=== PATIENT | female | born 1970 | race Caucasian/White ===

== ENCOUNTER 2017-02-06 08:50 | Inpatient (IN) | payer BC, OTHER ==
[~2017-02-06] VITALS: Ht 175.3 cm; Wt 55.3 kg
[2017-02-06] MEDS ORDERED: diphenhydrAMINE 50 MG CAPSULE PO PRN (13:45)
[2017-02-06] MEDS ORDERED: ONDANSETRON 4 MG/2 ML VIAL IM PRN (13:45)
[2017-02-06] MEDS ORDERED: LORAZEPAM 1 MG TABLET PO PRN ×2 (13:45)
[2017-02-06] MEDS ORDERED: MIRALAX 17 GM POWD.PACK PO PRN (13:45)
[2017-02-06] MEDS ORDERED: LACTULOSE 20 G/30 ML LIQUID UDC PO PRN (13:45)
[2017-02-06] MEDS ORDERED: LORAZEPAM 2 MG/1 ML VIAL IM PRN (13:45)
[2017-02-06] MEDS ORDERED: PROPRANOLOL HCL 10 MG TABLET PO PRN (13:45)
[2017-02-06] MEDS ORDERED: LOPERAMIDE HCL 2 MG CAPSULE PO PRN ×2 (13:45)
[2017-02-06] MEDS ORDERED: MAG HYDROX/AL HYDROX/SIMETH 30 ML LIQUID UDC PO PRN (13:45)
[2017-02-06] MEDS ORDERED: ONDANSETRON ODT 4 MG TAB.RAPDIS SL PRN (13:45)
[2017-02-06] MEDS ORDERED: DICYCLOMINE HCL 20 MG TABLET PO PRN (13:45)
[2017-02-06] MEDS ORDERED: ACETAMINOPHEN 325 MG TABLET PO PRN (13:45)
[2017-02-06] MEDS ORDERED: THIAMINE HCL 200 MG/2 ML VIAL IM ONE (13:45)
[2017-02-06 14:00] VITALS: BP 130/89
[2017-02-06 14:45] LABS: BASOPHILS % (AUTO) 0.4 % (0.0-2.0); EOSINOPHILS # (AUTO) 0.1 K/uL (0.0-0.7); EOSINOPHILS % (AUTO) 1.2 % (0.0-7.0); HEMATOCRIT 33.7 % (37-47); HEMOGLOBIN 11.2 G/DL (12.0-16.0); LYMPHOCYTES # (AUTO) 0.6 K/UL (0.8-4.8); MEAN CORPUSCULAR HGB CONC 33 g/dL (32.0-37.0); MEAN CORPUSCULAR VOLUME 81.3 FL (81.0-99.0); MONOCYTES # (AUTO) 0.1 K/UL (0.1-1.30); MONOCYTES % (AUTO) 3.3 % (0.0-11.0); NEUTROPHILS # (AUTO) 3.5 K/UL (1.8-8.9); NEUTROPHILS % (AUTO) 80.1 % (38.5-71.5); RED BLOOD CELL COUNT(AUTO) 4.15 MIL/UL (4.2-5.4); WHITE BLOOD COUNT (AUTO) 4.3 K/UL (4.0-11.2)
[2017-02-06] MEDS ORDERED: PREG150C PO (14:50)
[2017-02-06] MEDS ORDERED: LEVE500T20 PO (14:50)
[2017-02-06] MEDS ORDERED: ONDA8TAB6 PO (14:52)
[2017-02-06 14:55] LABS: ALANINE AMINOTRANSFERASE 94 U/L (14-59); ALKALINE PHOSPHATASE 153 U/L (50-136); AMYLASE 38 U/L (25-115); ASPARTATE AMINOTRANSFERASE 265 U/L (15-37); BILIRUBIN,TOTAL 5.2 mg/dL (0.2-1.0); CARBON DIOXIDE 28 mmol/L (21-32); CHLORIDE 101 mmol/L (98-107); CREATININE 0.8 mg/dL (0.6-1.3); GLUCOSE 179 mg/dL (74-106); MAGNESIUM 1.8 mg/dL (1.8-2.4); POTASSIUM 3.2 mmol/L (3.5-5.1); TOTAL PROTEIN, SERUM 8.2 g/dL (6.4-8.2); UREA NITROGEN, BLOOD 7 mg/dL (7-18)
[2017-02-06 14:59] LABS: ETHANOL 163 MG/DL (0-0)
[2017-02-06 15:12] LABS: PLATELET COUNT (AUTO) 27 K/UL (150-450)
[2017-02-06] MEDS ORDERED: POTASSIUM CHLORIDE 20 MEQ TAB.PRT.SR PO ONE (15:15)
[2017-02-06 15:17] LABS: BAND % (MANUAL) 5 % (0-10); LYMPHOCYTES % (MANUAL) 12 % (20-40); MONOCYTES % (MANUAL) 7 % (2-10); NEUTROPHILS % (MANUAL) 76 % (42-75)
[2017-02-06 16:00] VITALS: BP 106/66
[2017-02-06] MEDS: LORAZEPAM 1 MG TABLET PO SCH ×2 (17:00→21:09)
[2017-02-06 20:00] VITALS: BP 133/74
[2017-02-06 20:18] LABS: *AMPHETAMINE, URINE NEGATIVE (NEGATIVE); *BARBITURATE, URINE NEGATIVE (NEGATIVE); *CANNABINOID, URINE NEGATIVE (NEGATIVE); *COCCAINE, URINE NEGATIVE (NEGATIVE); *OPIATE, URINE NEGATIVE (NEGATIVE); *PHENCYCLIDINE SCREEN,URINE NEGATIVE (NEGATIVE)
[2017-02-06] MEDS ORDERED: POTASSIUM CHLORIDE 20 MEQ TAB.PRT.SR ONE (20:47)
[2017-02-06 20:56] LABS: *URINE HCG, QUAL NEGATIVE (NEGATIVE)
[2017-02-06] MEDS: LYRICA 150 MG PO SCH (21:00)
[2017-02-06] MEDS: IBUPROFEN 400 MG TABLET PO PRN (21:09)
[2017-02-06] MEDS ORDERED: PREGABALIN 100 MG CAPSULE PO ONE (22:30)
[2017-02-06] MEDS ORDERED: PREGABALIN 50 MG CAPSULE ONE (22:31)
[2017-02-06] MEDS ORDERED: PREGABALIN 50 MG CAPSULE PO ONE (22:45)
[2017-02-07] VITALS: BP 102/47
[2017-02-07 04:00] VITALS: BP 106/50
[2017-02-07 08:00] VITALS: BP 104/55
[2017-02-07 08:58] LABS: BASOPHILS % (AUTO) 0.7 % (0.0-2.0); EOSINOPHILS # (AUTO) 0.1 K/uL (0.0-0.7); EOSINOPHILS % (AUTO) 3.1 % (0.0-7.0); HEMATOCRIT 30.7 % (31.2-41.9); HEMOGLOBIN 10.4 g/dL (10.9-14.3); LYMPHOCYTES # (AUTO) 0.5 K/uL (20.0-40.0); LYMPHOCYTES % (AUTO) 19.1 % (20.5-51.5); MEAN CORPUSCULAR HEMOGLOBIN 27.7 uug (24.7-32.8); MEAN CORPUSCULAR HGB CONC 34 g/dL (32.3-35.6); MEAN CORPUSCULAR VOLUME 81.8 fL (75.5-95.3); MONOCYTES # (AUTO) 0.2 K/uL (2.0-10.0); NEUTROPHILS # (AUTO) 1.8 K/uL (1.8-8.9); NEUTROPHILS % (AUTO) 70.1 % (38.5-71.5); RED BLOOD CELL COUNT(AUTO) 3.76 MIL/uL (3.63-4.92)
[2017-02-07] MEDS: FOLIC ACID 1 MG TABLET PO SCH (08:58)
[2017-02-07] MEDS: THIAMINE HCL 100 MG TABLET PO SCH (08:58)
[2017-02-07] MEDS: MULTIVITAMINS,THERAPEUTIC TABLET PO SCH (08:58)
[2017-02-07] MEDS: LORAZEPAM 1 MG TABLET PO SCH ×4 (08:58→21:24)
[2017-02-07] MEDS ORDERED: TUBERCULIN,PURIF.PROT.DERIV. 5 TU/0.1 ML TEST ID ONE (09:00)
[2017-02-07 09:06] LABS: HEPATITIS B SURFACE AG Negative (Negative)
[2017-02-07 09:28] LABS: WHITE BLOOD COUNT (AUTO) 2.6 K/uL (3.8-11.8)
[2017-02-07 09:29] LABS: PLATELET COUNT (AUTO) 18 K/uL (179-408)
[2017-02-07] MEDS: LEVETIRACETAM 750MG PO SCH ×2 (10:07→21:24)
[2017-02-07 10:14] LABS: BILIRUBIN,DIRECT 3.9 mg/dL (0.0-0.2); BILIRUBIN,TOTAL 5.7 mg/dL (0.2-1.0); MAGNESIUM 1.5 mg/dL (1.8-2.4); POTASSIUM 3.2 mmol/L (3.5-5.1); TOTAL PROTEIN, SERUM 7.2 g/dL (6.4-8.2)
[2017-02-07 11:04] LABS: BAND % (MANUAL) 3 % (0-10); BASOPHILS % (MANUAL) 1 % (0-2); EOSINOPHILS % (MANUAL) 4 % (0-8); LYMPHOCYTES % (MANUAL) 18 % (20-40); MONOCYTES % (MANUAL) 7 % (2-10); NEUTROPHILS % (MANUAL) 67 % (42-75)
[2017-02-07] MEDS: IBUPROFEN 400 MG TABLET PO PRN (12:34)
[2017-02-07] MEDS ORDERED: PROPRANOLOL HCL 20 MG TABLET PO ONE (13:15)
[2017-02-07] MEDS ORDERED: MAGNESIUM OXIDE 400 MG TABLET PO ONE ×2 (13:15→21:00)
[2017-02-07] MEDS ORDERED: POTASSIUM CHLORIDE 20 MEQ TAB.PRT.SR PO ONE (13:15)
[2017-02-07 13:21] VITALS: BP 118/59
[2017-02-07] MEDS ORDERED: PHYTONADIONE 5 MG TABLET PO ONE (15:30)
[2017-02-07 16:00] VITALS: BP 92/55
[2017-02-07] MEDS ORDERED: METHYL SALICYLATE/MENTHOL CREAM 28 GM TUBE TOP PRN (18:15)
[2017-02-07 20:00] VITALS: BP 92/52
[2017-02-07] MEDS: PROPRANOLOL HCL 20 MG TABLET PO SCH (21:00)
[2017-02-07] MEDS: LYRICA 150 MG PO SCH (21:25)
[2017-02-08 07:28] LABS: BILIRUBIN,DIRECT 4.6 mg/dL (0.0-0.2); BILIRUBIN,TOTAL 5.2 mg/dL (0.2-1.0); CREATININE 0.7 mg/dL (0.6-1.3); MAGNESIUM 1.7 mg/dL (1.8-2.4); PHOSPHOROUS 3.1 mg/dL (2.5-4.9); POTASSIUM 3.4 mmol/L (3.5-5.1); TOTAL PROTEIN, SERUM 6.5 g/dL (6.4-8.2)
[2017-02-08 07:44] LABS: EOSINOPHILS # (AUTO) 0.2 K/uL (0.0-0.7); EOSINOPHILS % (AUTO) 3.4 % (0.0-7.0); HEMATOCRIT 29.9 % (31.2-41.9); HEMOGLOBIN 10.2 g/dL (10.9-14.3); LYMPHOCYTES # (AUTO) 1.1 K/uL (20.0-40.0); LYMPHOCYTES % (AUTO) 24.4 % (20.5-51.5); MEAN CORPUSCULAR HEMOGLOBIN 27.8 uug (24.7-32.8); MEAN CORPUSCULAR HGB CONC 34 g/dL (32.3-35.6); MEAN CORPUSCULAR VOLUME 81.7 fL (75.5-95.3); MONOCYTES # (AUTO) 0.3 K/uL (2.0-10.0); MONOCYTES % (AUTO) 7.1 % (0.0-11.0); NEUTROPHILS # (AUTO) 2.8 K/uL (1.8-8.9); NEUTROPHILS % (AUTO) 64.1 % (38.5-71.5); RED BLOOD CELL COUNT(AUTO) 3.66 MIL/uL (3.63-4.92); WHITE BLOOD COUNT (AUTO) 4.4 K/uL (3.8-11.8)
[2017-02-08 07:53] LABS: PLATELET COUNT (AUTO) 21 K/uL (179-408)
[2017-02-08 08:00] VITALS: BP 93/59
[2017-02-08 08:18] LABS: BAND % (MANUAL) 3 % (0-10); BASOPHILS % (MANUAL) 1 % (0-2); EOSINOPHILS % (MANUAL) 3 % (0-8); LYMPHOCYTES % (MANUAL) 23 % (20-40); MONOCYTES % (MANUAL) 7 % (2-10); NEUTROPHILS % (MANUAL) 63 % (42-75)
[2017-02-08] MEDS: PROPRANOLOL HCL 20 MG TABLET PO SCH ×2 (09:00→21:00)
[2017-02-08] MEDS: LORAZEPAM 1 MG TABLET PO SCH ×3 (09:58→22:28)
[2017-02-08] MEDS: MULTIVITAMINS,THERAPEUTIC TABLET PO SCH (09:58)
[2017-02-08] MEDS: FOLIC ACID 1 MG TABLET PO SCH (09:58)
[2017-02-08] MEDS: THIAMINE HCL 100 MG TABLET PO SCH (09:58)
[2017-02-08] MEDS: LEVETIRACETAM 750MG PO SCH ×2 (09:59→21:27)
[2017-02-08 12:00] VITALS: BP 88/55
[2017-02-08] MEDS ORDERED: POTASSIUM CHLORIDE 20 MEQ POWDER PACKET PO ONE (14:30)
[2017-02-08] MEDS ORDERED: MAGNESIUM OXIDE 400 MG TABLET PO ONE ×3 (14:30→15:00)
[2017-02-08] MEDS ORDERED: POTASSIUM CHLORIDE 10 MEQ CAPSULE.SA PO ONE (15:00)
[2017-02-08 16:00] VITALS: BP 97/54
[2017-02-08 20:00] VITALS: BP 90/56
[2017-02-08] MEDS: LYRICA 150 MG PO SCH (21:27)
[2017-02-09] VITALS: BP 96/56
[2017-02-09 04:00] VITALS: BP 100/62
[2017-02-09 08:00] VITALS: BP 102/69
[2017-02-09 08:07] LABS: BASOPHILS # (AUTO) 0.1 K/uL (0.0-8.0); BASOPHILS % (AUTO) 1.5 % (0.0-2.0); CARBON DIOXIDE 26 mmol/L (21-32); CHLORIDE 105 mmol/L (98-107); CREATININE 0.5 mg/dL (0.6-1.3); EOSINOPHILS # (AUTO) 0.1 K/uL (0.0-0.7); EOSINOPHILS % (AUTO) 3.2 % (0.0-7.0); GLUCOSE 83 mg/dL (74-106); HEMATOCRIT 31.6 % (31.2-41.9); HEMOGLOBIN 10.6 g/dL (10.9-14.3); LYMPHOCYTES # (AUTO) 1.2 K/uL (20.0-40.0); MAGNESIUM 1.5 mg/dL (1.8-2.4); MEAN CORPUSCULAR HEMOGLOBIN 27.5 uug (24.7-32.8); MEAN CORPUSCULAR HGB CONC 33 g/dL (32.3-35.6); MEAN CORPUSCULAR VOLUME 82.4 fL (75.5-95.3); MONOCYTES # (AUTO) 0.3 K/uL (2.0-10.0); MONOCYTES % (AUTO) 9.2 % (0.0-11.0); NEUTROPHILS # (AUTO) 2.1 K/uL (1.8-8.9); NEUTROPHILS % (AUTO) 55.1 % (38.5-71.5); POTASSIUM 4.3 mmol/L (3.5-5.1); RED BLOOD CELL COUNT(AUTO) 3.83 MIL/uL (3.63-4.92); UREA NITROGEN, BLOOD 15 mg/dL (7-18); WHITE BLOOD COUNT (AUTO) 3.8 K/uL (3.8-11.8)
[2017-02-09 08:16] LABS: PLATELET COUNT (AUTO) 23 K/uL (179-408)
[2017-02-09] MEDS: LORAZEPAM 1 MG TABLET PO SCH ×2 (09:00→21:06)
[2017-02-09] MEDS: THIAMINE HCL 100 MG TABLET PO SCH (09:35)
[2017-02-09] MEDS: LEVETIRACETAM 750MG PO SCH ×2 (09:35→21:06)
[2017-02-09] MEDS: PROPRANOLOL HCL 20 MG TABLET PO SCH ×2 (09:35→21:06)
[2017-02-09] MEDS: MULTIVITAMINS,THERAPEUTIC TABLET PO SCH (09:35)
[2017-02-09] MEDS: FOLIC ACID 1 MG TABLET PO SCH (09:35)
[2017-02-09 10:11] LABS: EOSINOPHILS % (MANUAL) 2 % (0-8); LYMPHOCYTES % (MANUAL) 30 % (20-40); MONOCYTES % (MANUAL) 10 % (2-10); NEUTROPHILS % (MANUAL) 58 % (42-75)
[2017-02-09 12:00] VITALS: BP 89/48
[2017-02-09] MEDS ORDERED: PHYTONADIONE 10 MG/1 ML AMPUL IM ONE (13:00)
[2017-02-09] MEDS ORDERED: MAGNESIUM OXIDE 400 MG TABLET PO ONE (13:00)
[2017-02-09] MEDS: LIPASE/PROTEASE/AMYLASE 4200 UNITS CAPSULE.DR PO SCH ×2 (13:04→17:10)
[2017-02-09 16:00] VITALS: BP 94/56
[2017-02-09 20:00] VITALS: BP 98/62
[2017-02-09 20:24] LABS: *OCCULT BLOOD STOOL POSITIVE (NEGATIVE)
[2017-02-09] MEDS: LYRICA 150 MG PO SCH (21:06)
[2017-02-10] VITALS: BP 90/55
[2017-02-10 04:00] VITALS: BP 88/52
[2017-02-10 06:58] LABS: HEMATOCRIT 29.6 % (37-47); HEMOGLOBIN 9.9 G/DL (12.0-16.0); MEAN CORPUSCULAR HGB CONC 34 g/dL (32.0-37.0); MEAN CORPUSCULAR VOLUME 83.4 FL (81.0-99.0); RED BLOOD CELL COUNT(AUTO) 3.55 MIL/UL (4.2-5.4); WHITE BLOOD COUNT (AUTO) 4.8 K/UL (4.0-11.2)
[2017-02-10 07:16] LABS: CREATININE 0.7 mg/dL (0.6-1.3); MAGNESIUM 1.8 mg/dL (1.8-2.4); POTASSIUM 3.6 mmol/L (3.5-5.1)
[2017-02-10 08:00] VITALS: BP 81/50
[2017-02-10 08:03] LABS: PLATELET COUNT (AUTO) 43 K/UL (150-450)
[2017-02-10 09:00] VITALS: BP 81/50
[2017-02-10] MEDS ORDERED: LORAZEPAM 1 MG TABLET PO SCH (09:00)
[2017-02-10] MEDS: PROPRANOLOL HCL 20 MG TABLET PO SCH (09:00)
[2017-02-10] MEDS: MULTIVITAMINS,THERAPEUTIC TABLET PO SCH (09:24)
[2017-02-10] MEDS: LEVETIRACETAM 750MG PO SCH (09:24)
[2017-02-10] MEDS: LIPASE/PROTEASE/AMYLASE 4200 UNITS CAPSULE.DR PO SCH (09:24)
[2017-02-10] MEDS: THIAMINE HCL 100 MG TABLET PO SCH (09:24)
[2017-02-10] MEDS: FOLIC ACID 1 MG TABLET PO SCH (09:25)
[2017-02-10 10:28] LABS: EOSINOPHILS % (MANUAL) 1 % (0-8); LYMPHOCYTES % (MANUAL) 24 % (20-40); MONOCYTES % (MANUAL) 7 % (2-10); NEUTROPHILS % (MANUAL) 68 % (42-75)
== END 2017-02-10 11:20 | disposition left against medical advice (07) | DRG 894 ==
LOC: SRC 12:24
PROVIDERS: ADMIT Internal Medicine; ATTEND Internal Medicine
PROC: HZ2ZZZZ Detoxification Services for Substance Abuse Treatment (ICD-10-PCS; principal; 2017-02-06)
PROC: HZ31ZZZ Individual Counseling for Substance Abuse Treatment, Behavioral (ICD-10-PCS; 2017-02-09)
DX: F10.230 Alcohol dependence with withdrawal, uncomplicated (principal); D61.811 Other drug-induced pancytopenia; G40.919 Epilepsy, unspecified, intractable, without status epilepticus; I85.11 Secondary esophageal varices with bleeding; E44.0 Moderate protein-calorie malnutrition; K76.6 Portal hypertension; D68.4 Acquired coagulation factor deficiency; Z68.1 Body mass index [BMI] 19.9 or less, adult; E87.1 Hypo-osmolality and hyponatremia; E83.42 Hypomagnesemia; K70.30 Alcoholic cirrhosis of liver without ascites; K70.40 Alcoholic hepatic failure without coma; F13.10 Sedative, hypnotic or anxiolytic abuse, uncomplicated; Y90.9 Presence of alcohol in blood, level not specified; E87.6 Hypokalemia; Z81.1 Family history of alcohol abuse and dependence; Z81.8 Family history of other mental and behavioral disorders; K70.10 Alcoholic hepatitis without ascites; G47.00 Insomnia, unspecified; E87.8 Other disorders of electrolyte and fluid balance, not elsewhere classified; E86.1 Hypovolemia; D73.1 Hypersplenism
CPT/HCPCS: 36415; 76700; 80307; 82746; 83550; 83735; 84100; 84703; 85025; 85610; 86580; 86592; 86705; 86803; 87340; 87806; A4663; G0480; J3430